=== PATIENT | male | born 1950 | race Caucasian/White ===

== ENCOUNTER → 2016-03-08 | Day surgery (SDC) | payer OTHER ==
[2015-06-12 12:53] VITALS: BMI 32.5
[~2016-03-08] MED LIST: BUPIVACAINE 0.5% 30 ML VIAL ONE; CEFAZOLIN 1 GM VIAL ONE; DEXAMETHASONE 4 MG/ML VIAL IV ONE; FENTANYL 100 MCG/2 ML VIAL IV PRN; FENTANYL 250 MCG/5 ML VIAL IV ONE; GLYCOPYRROLATE 1 MG VIAL IM ONE; HYDROmorphone 1 MG INJECTION IV PRN; KETOROLAC TROMETH 30 MG/ML VIAL IM ONE; LABETALOL 20 MG/4 ML SYRINGE IV PRN; LIDOCAINE 100 MG PFS IV ONE; MEPERIDINE 25 MG/ML TUBEX IV PRN; MIDAZOLAM 2 MG/2 ML VIAL IV ONE; NEOSTIGMINE 1 MG/1 ML (1:1000) INJ 10 ML MDV IM ONE; ONDANSETRON HCL 4 MG ODT TAB PO PRN; ONDANSETRON HCL 4 MG/2 ML VIAL IV ONE; ONDANSETRON HCL 4 MG/2 ML VIAL IV PRN; OXYCODONE HCL 5 MG TABLET ONE; PROPOFOL 200 MG/20 ML VIAL IV ONE; ROCURONIUM 50 MG/5 ML VIAL IV ONE; SUCCINYLCHOLINE 20 MG/1 ML INJ 10 ML MDV IV ONE; hydrALAZINE 20 MG/ML VIAL IV PRN
--- NOTE | 2016-03-08 06:44 | HIM.ANES ---
Anesthesia Evaluation & Plan Diagnoses: VENTRAL HERNIA WITHOUT OBSTRUCTION OR GANGRENE (03/08/16) Consented Procedure: VENTRAL HERNIA REPAIR WITH MESH - Focused Review of Systems Cardiac History: Yes: Hx Hypertension, Hx Cardiac Disorders HEENT: Yes: Hx Vision Problem (reading glasses), Other HEENT Problems Respiratory: Yes: Hx Snoring Gastrointestinal: Yes: Hx Gastroesophageal Reflux Disease, Hx Gastrointestinal Disorders, Hx Colonoscopy, Hx Endoscopy Neurological/Musculoskeletal: No: Hx Neurological Disorders Psychological: No Hx Mental/Emotional Disorders Blood/Autoimmune: No: Hx AIDS, Hx Hepatitis (type) Smoking Status: Former smoker Other Surgical History: I&D rectal abscess prostratectomy 2013 - Focused Physical Exam NPO since: 03/07/16 1900 Mallampati: Class II Thyromental Distance: Greater than 3 Neck: Full Range of Motion Dental: Normal - no significant findings Cardiovascular/Chest: Normal Respiratory: Lungs clear Any problems with anesthesia, including nausea and vomiting?: No Any relatives with a history of Malignant Hyperthermia?: No Beta Juma given (if appropriate): N/A Does the patient have a history of Motion Sickness-: No Other: Allergies Allergy/AdvReac Type Severity Reaction Status Date / Time No Known Allergies Allergy Verified 03/08/16 06:18 Home Medications Medication Instructions Recorded Last Taken Type Amlodipine Besylate [Norvasc] 10 mg PO HS 06/09/15 03/07/16 21:00 History Aspirin 81 mg PO DAILY 06/09/15 02/23/16 History Omeprazole Magnesium [Prilosec Otc] 20 mg PO HS 03/01/16 03/07/16 21:00 History Height and Weight Patient's height 5 ft 4 in Patient's weight 87.09 kg BMI 32.5 Vital Signs Temperature 98.4 F 03/08/16 06:11 Pulse Rate 77 03/08/16 06:11 Respiratory Rate 18 03/08/16 06:11 Blood Pressure 164/81 03/08/16 06:11 Pulse Oxygen Saturation 97 03/08/16 06:11 - Anesthetic Plan Anesthesia Type: General ASA Class: 2 -: I have examined this patient and reviewed the medical record. The patient has been assessed prior to anesthesia. Risks and benefits of anesthesia and anesthetic technique options have been discussed and all questions answered. The patient accepts the risk and desires me to proceed with the planned anesthetic.
--- NOTE | 2016-03-08 08:04 | HIMOPRPT ---
DATE OF PROCEDURE: 03/08/16 PREOPERATIVE DIAGNOSIS: Incarcerated ventral abdominal hernia. POSTOPERATIVE DIAGNOSIS: Incarcerated ventral abdominal hernia. PROCEDURES: Repair of incarcerated ventral abdominal hernia with placement of an 4.3 cm Bard Ventralex mesh. SURGEON: Taj Gonsalez MD ANESTHESIA: General. COMPLICATIONS: None. SPECIMENS: None. PACKINGS AND DRAINS: None. BLOOD LOSS: 2 cc OPERATIVE FINDINGS AND TECHNIQUE: With consent, the patient was brought to the operative suite, placed in supine position. Following general anesthesia, the abdomen was prepped and draped in usual fashion. A curvilinear supra umbilical incision was made. Dissection was carried down to the level of the fascia. The fascia was identified. There was an obvious fascial defect. Preperitoneal dissection was undertaken. The fascia defect measured approximately 0.5 cm. An 4.3 cm Bard Ventralex was chosen for the repair. This was placed in the subfascial location and deployed appropriately. The Ventralex was secured circumferentially using interrupted horizontal mattress sutures of 0 Vicryl. Wound was irrigated and dried. Hemostasis was achieved. The hernial defect was reapproximated over the mesh using interrupted [id number] 0-Vicryl suture. Wound was irrigated and dried. Deep, subcutaneous, and subcuticular tissues were injected with 0.5% Marcaine. Subcutaneous tissue was reapproximated using the 3-0 Vicryl, and skin approximation was accomplished using 4-0 Monocryl in subcuticular fashion. Dermabond, 2 x 2 gauze, and Tegaderm dressing were applied to the wound. The patient tolerated the procedure well. There was no pathologic specimen.
[2016-03-08 08:24] VITALS: TEMP 97.6
[2016-03-08 10:19] VITALS: PULSE 72
[2016-03-08 17:48] VITALS: BP 141/69
--- NOTE | 2016-03-08 17:48 | SC.ANESPOS ---
Post-Anesthesia Note LOC: Fully Awake Post-Anesthesia Assessment: Awake, Returned to Baseline, Hemodynamically Stable , Pain Control Adequate Phase I & II Recovery Complete: Yes Apparent Anesthesia Complication: No : N - Vital Signs Blood Pressure: 141/69 Pulse: 72 Resp Rate: 18 O2 Sat: 94 Temp: 97.6 F
== END ==
LOC: SDC 05:35
PROVIDERS: ATTEND Surgery Vascular Surgery
PROC: 0WUF0JZ Supplement Abdominal Wall with Synthetic Substitute, Open Approach (ICD-10-PCS; principal; 2016-03-08 07:15)
DX: K43.6 Other and unspecified ventral hernia with obstruction, without gangrene (principal); I10 Essential (primary) hypertension; K21.9 Gastro-esophageal reflux disease without esophagitis; E66.9 Obesity, unspecified; Z68.34 Body mass index [BMI] 34.0-34.9, adult; Z87.891 Personal history of nicotine dependence; Z79.899 Other long term (current) drug therapy
CPT/HCPCS: 49561; 49568; C1781; J0330; J0690; J1100; J1885; J2001; J2250; J2405; J2710; J3010; J3490